=== PATIENT | male | born 1960 | race African-American/Black ===

== ENCOUNTER 2020-02-22 10:56 | Inpatient (IN) | payer OTHER ==
[~2020-02-22] VITALS: Ht 190.5 cm; Wt 100.9 kg
[2020-02-22 11:51] LABS: CALCIUM 8.3 mg/dL (8.5-10.1); CARBON DIOXIDE 28.4 mmol/L (21-32); CHLORIDE SERUM 105 mmol/L (98-107); CREATININE SERUM 1.1 mg/dL (0.7-1.3); GFR1 > 60 mL/min; GLUCOSE SERUM 174 mg/dL (74-106); POTASSIUM SERUM 4.7 mmol/L (3.5-5.1); SODIUM SERUM 140 mmol/L (136-145)
[2020-02-22 11:56] LABS: ALKALINE PHOSPHATASE 47 U/L (46-116); ALT/SGPT 49 U/L (16-63); AST/SGOT 23 U/L (15-37); BILIRUBIN TOTAL 0.2 mg/dL (0.20-1.00)
[2020-02-22 12:01] LABS: ALBUMIN 3.1 g/dL (3.4-5.0); TOTAL PROTEIN, SERUM 5.7 g/dL (6.4-8.2)
[2020-02-22 12:40] LABS: BASOPHIL % 0.5 % (0-2); PLATELET COUNT 213 x10^3mcL (130-400); RED CELL DISTRIBUTION WIDTH 12.9 % (11.5-14.5)
[2020-02-22] MEDS ORDERED: TENORMIN25 MG (14:06)
[2020-02-22] MEDS ORDERED: FORTAMET500 M1 (14:06)
[2020-02-22] MEDS ORDERED: ZESTRIL5 MG (14:07)
[2020-02-22] MEDS ORDERED: ASPIRIN FOR CHI81 M1 (14:07)
[2020-02-22 14:59] VITALS: BP 111/69
[2020-02-22 15:21] VITALS: BP 111/69
[2020-02-22 16:20] LABS: MAGNESIUM 1.7 mg/dL (1.8-2.4)
[2020-02-22 16:21] VITALS: BP 136/85
[2020-02-22 16:28] LABS: CHOLESTEROL/HDL RATIO 1.8
[2020-02-22 16:31] LABS: FREE T4 0.92 ng/dL (0.76-1.46); FREE THYROXINE INDEX 2.1 ug/dL (1.4-4.5); T3 TOTAL 0.97 ng/mL; T4(THYROXINE) 5.3 ug/dL (4.7-13.3)
[2020-02-22 16:39] LABS: BASOPHIL % 0.3 % (0-2); PLATELET COUNT 179 x10^3mcL (130-400); RED CELL DISTRIBUTION WIDTH 12.8 % (11.5-14.5)
[2020-02-22 20:22] VITALS: BP 103/68
[2020-02-22 22:00] LABS: BASOPHIL % 0.5 % (0-2); PLATELET COUNT 188 x10^3mcL (130-400); RED CELL DISTRIBUTION WIDTH 12.8 % (11.5-14.5)
[2020-02-23 05:36] VITALS: BP 139/91
[2020-02-23 07:14] LABS: microscopic required? NO
[2020-02-23 07:32] LABS: BASOPHIL % 1.6 % (0-2); PLATELET COUNT 198 x10^3mcL (130-400); RED CELL DISTRIBUTION WIDTH 12.2 % (11.5-14.5)
[2020-02-23 07:57] LABS: CALCIUM 8.1 mg/dL (8.5-10.1); CARBON DIOXIDE 26.4 mmol/L (21-32); CHLORIDE SERUM 111 mmol/L (98-107); CREATININE SERUM 0.8 mg/dL (0.7-1.3); GFR1 > 60 mL/min; GLUCOSE SERUM 91 mg/dL (74-106); MAGNESIUM 1.7 mg/dL (1.8-2.4); PHOSPHOROUS 3.2 mg/dL (2.5-4.9); POTASSIUM SERUM 4.2 mmol/L (3.5-5.1); SODIUM SERUM 148 mmol/L (136-145)
[2020-02-23 07:59] VITALS: BP 118/70
[2020-02-23 08:45] LABS: UA SPECIFIC GRAVITY >=1.030 (1.005-1.035); urine erythrocyte NEGATIVE (NEGATIVE)
[2020-02-23 09:03] LABS: AMPHETAMINE QUAL UR NONE DETECTED (See below)
[2020-02-23 12:27] VITALS: BP 124/74
[2020-02-23 16:07] LABS: BASOPHIL % 0.2 % (0-2); PLATELET COUNT 161 x10^3mcL (130-400); RED CELL DISTRIBUTION WIDTH 12.9 % (11.5-14.5)
[2020-02-23 16:29] VITALS: BP 97/60
[2020-02-23 20:49] LABS: IRON 36 ug/dL (65-170)
[2020-02-23 20:50] LABS: TOTAL IRON BINDING CAPACITY 194 ug/dL (250-450)
[2020-02-23 22:11] VITALS: BP 108/63
[2020-02-23 22:25] LABS: BASOPHIL % 0.4 % (0-2); PLATELET COUNT 222 x10^3mcL (130-400); RED CELL DISTRIBUTION WIDTH 12.4 % (11.5-14.5)
[2020-02-23 23:15] VITALS: BP 108/75
[2020-02-24 03:15] VITALS: BP 115/73
[2020-02-24 08:00] VITALS: BP 122/79
[2020-02-24 09:33] LABS: CALCIUM 7.8 mg/dL (8.5-10.1); CARBON DIOXIDE 24.2 mmol/L (21-32); CHLORIDE SERUM 111 mmol/L (98-107); CREATININE SERUM 0.6 mg/dL (0.7-1.3); GFR1 > 60 mL/min; GLUCOSE SERUM 108 mg/dL (74-106); MAGNESIUM 1.7 mg/dL (1.8-2.4); PHOSPHOROUS 3.2 mg/dL (2.5-4.9); POTASSIUM SERUM 4.3 mmol/L (3.5-5.1); SODIUM SERUM 143 mmol/L (136-145)
[2020-02-24 10:36] VITALS: Ht 190.5 cm; Wt 100.9 kg
[2020-02-24 11:27] VITALS: BP 123/74
[2020-02-24 11:42] VITALS: BP 125/82
[2020-02-24 12:53] LABS: BASOPHIL % 0.3 % (0-2); PLATELET COUNT 128 x10^3mcL (130-400); RED CELL DISTRIBUTION WIDTH 14.9 % (11.5-14.5)
[2020-02-24 13:30] VITALS: BP 133/79
[2020-02-24 14:03] VITALS: BP 126/84
== END 2020-02-24 14:55 | disposition short-term general hospital (02) | DRG 377 ==
LOC: ED 10:56 → IC 13:43 → DU 13:43 → IC 02-23 21:33
PROVIDERS: Emergency Medicine; Internal Medicine Gastroenterology; ADMIT Internal Medicine
PROC: 30233N1 Transfusion of Nonautologous Red Blood Cells into Peripheral Vein, Percutaneous Approach (ICD-10-PCS; principal; 2020-02-23 08:00)
PROC: 0DBL8ZZ Excision of Transverse Colon, Via Natural or Artificial Opening Endoscopic (ICD-10-PCS; 2020-02-23 08:00)
PROC: 0DB78ZX Excision of Stomach, Pylorus, Via Natural or Artificial Opening Endoscopic, Diagnostic (ICD-10-PCS; 2020-02-23 08:00)
DX: K57.31 Diverticulosis of large intestine without perforation or abscess with bleeding (principal); R57.8 Other shock; D62 Acute posthemorrhagic anemia; E44.1 Mild protein-calorie malnutrition; E11.9 Type 2 diabetes mellitus without complications; I95.9 Hypotension, unspecified; E78.5 Hyperlipidemia, unspecified; E83.51 Hypocalcemia; G47.33 Obstructive sleep apnea (adult) (pediatric); G43.909 Migraine, unspecified, not intractable, without status migrainosus; E78.00 Pure hypercholesterolemia, unspecified; R00.0 Tachycardia, unspecified; K64.9 Unspecified hemorrhoids; Z79.84 Long term (current) use of oral hypoglycemic drugs; Z90.49 Acquired absence of other specified parts of digestive tract; Z79.899 Other long term (current) drug therapy
CPT/HCPCS: 43235; 45378; 82962; 83880; 84439; 87046; 87046-59; C9113; G0378; J1170; J1200; J1610; J2250; J2310; J2354; J2405; J2765; J2916; J3010; J3370; J3490; J7030; J7040; J7050; P9016; P9059; Q0092; Q9967